=== PATIENT | female | born 1990 | race Caucasian/White ===

== ENCOUNTER 2016-10-18 16:30 | Emergency (ER) | payer OTHER ==
[~2016-10-18] VITALS: Ht 160 cm; Wt 99.8 kg
[2016-10-18] MEDS ORDERED: IBUPROFEN600 M1 PO (16:45)
[2016-10-18] MEDS ORDERED: FERROUS SULFAT325 M3 (16:46)
[2016-10-18] MEDS ORDERED: VITAMIN D250000 UNIT (16:47)
[2016-10-18] MEDS ORDERED: ESCITALOPRAM OXA5 MG (16:47)
[2016-10-18] MEDS ORDERED: TERBINAFINE HC250 MG PO (16:48)
[2016-10-18] MEDS ORDERED: IPRATROPIUM BRO30 M2 (16:49)
[2016-10-18] MEDS ORDERED: ALPRAZOLAM0.25 M1 (16:49)
[2016-10-18 16:50] LABS: ABSOLUTE BASOPHIL COUNT 0 /CUMM (0.0-0.2); ABSOLUTE EOSINOPHIL COUNT 0 /CUMM (0.0-0.7); ABSOLUTE GRANULOCYTE CT 7.4 /CUMM (1.4-6.5); ABSOLUTE LYMPH COUNT 0.6 /CUMM (1.2-3.4); ABSOLUTE MONOCYTE COUNT 0.1 /CUMM (0.10-0.60); BASOPHIL % 0 % (0.0-2.0); EOSINOPHIL % 0 % (0-5); GRANULOCYTE % 91.3 % (42.2-75.2); HEMATOCRIT 30.7 % (37-47); MEAN CORPUSCULAR HGB 18.3 PG (27.0-31.0); MEAN CORPUSCULAR HGB CONC 29.8 G/DL (33.0-37.0); MEAN CORPUSCULAR VOLUME 61.3 FL (81.0-99.0); MEAN PLATELET VOLUME 8.5 FL (7.4-10.4); PLATELET COUNT 305 /CUMM (130-400); RBC DISTRIBUTION WIDTH 20.3 % (11.5-14.5); RED BLOOD CELL CT 5.02 /CUMM (4.20-5.40); WHITE BLOOD CELL COUNT 8.1 /CUMM (4.8-10.8)
[2016-10-18] MEDS ORDERED: SKYLA1 EACH (16:50)
--- NOTE | 2016-10-18 17:10 | ED DYSPNEA/ASTHMA COMPLAINT ---
See Addendum History of Present Illness General Chief Complaint: Dyspnea (COPD, CHF, Other) Stated Complaint: BIBA RESP DISTRESS Source: patient, old records, EMS Exam Limitations: no limitations Vital Signs & Intake/Output Vital Signs & Intake/Output Vital Signs Date Time Temp Pulse Resp B/P Pulse O2 O2 Flow FiO2 Ox Delivery Rate 10/18 1849 90 Non 100% ReBreather 10/18 1840 129 24 97/39 10/18 1803 129 24 101/51 96 Venti Mask 100% 10/18 1743 129 24 90/43 96 Venti Mask 55% 10/18 1728 97 Non 100% ReBreather 10/18 1722 122 24 82/44 96 Non 100% ReBreather 10/18 1705 124 24 60/0 96 Non 100% ReBreather 10/18 1635 96.6 123 22 90/41 96 Non ReBreather Allergies Coded Allergies: NO KNOWN ALLERGIES (06/25/16) Reconcile Medications Alprazolam (Unknown Strength) TABLET (Unknown Dose) UNKNOWN (Reported) Ergocalciferol (Vitamin D2) (Vitamin D2) (Unknown Strength) CAPSULE (Unknown Dose) UNKNOWN (Reported) Escitalopram Oxalate (Unknown Strength) TABLET (Unknown Dose) UNKNOWN ( Reported) Ferrous Sulfate (Unknown Strength) TABLET (Unknown Dose) UNKNOWN (Reported) Ibuprofen 600 MG TABLET 2 TAB PO TID PAIN (Reported) Ipratropium [place] (Unknown Strength) SPRAY (Unknown Dose) UNKNOWN (Reported ) Levonorgestrel (Mary) 14 MCG/24 HOUR (3 YEARS) IUD CONTROL (Reported) Terbinafine HCl 250 MG TABLET 1 TAB PO DAILY ANTIFUNGAL (Reported) Triage Note: PT LUIS FROM HOME WITH PRIMARY COMPLAINT OF SOB X 3 DAY. SHE WAS FOUND TO BE HYPOXIC IN THE LOW 80'S AT RA BY [facility]ELMAN FOR SHE WAS PLACED ON NON REBRETAHER WITH O2 SAT INCREASE TO 90%. SHE APPEARS VERY PALE AND REPORTED + HX OF ANEMIA. ALSO REPORTED PRODUCTIVE COUGH X 3 DAYS NON FEBRILE. Triage Nurses Notes Reviewed? yes Onset: 3 days Duration: day(s):, constant, continues in ED Timing: recent history Severity: severe Activities at Onset: none Prior Episodes/Possible Cause: illness exposure Modifying Factors: Improves With: rest. Worsens With: movement. Associated Symptoms: anxiety, cough, chest pain, lightheadedness, weakness LMP (ages 10-50): unknown : No Patient currently breastfeeds: No HPI: 3 days prior to admission patient complains of nausea vomiting decreased appetite chills and nonproductive cough. She also complains of shortness of breath with substernal chest pain with cough deep breath and extreme weakness. The patient disclosed to nursing that there were recent deaths of her mom and sister in an MVA raising the possibility of suicide attempt. Past History Travel History Traveled to [place] past 21 day No Medical History Any Pertinent Medical History? 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 No Review of Systems Review of Systems Constitutional: Reports: see HPI, chills, weakness. EENTM: Reports: no symptoms. Respiratory: Reports: see HPI, cough, short of breath, wheezing. Cardiovascular: Reports: see HPI, chest pain. GI: Reports: see HPI, nausea, vomiting. Genitourinary: Reports: no symptoms. Musculoskeletal: Reports: no symptoms. Skin: Reports: no symptoms. Neurological/Psychological: Reports: no symptoms. Hematologic/Endocrine: Reports: no symptoms. Immunologic/Allergic: Reports: no symptoms. All Other Systems: Reviewed and Negative Physical Exam Physical Exam General Appearance: well developed/nourished, alert, awake, anxious, severe distress, obese Head: atraumatic, normal appearance Eyes: Bilateral: PERRL, EOMI, pale conjunctivae. Ears, Nose, Throat: normal pharynx, normal ENT inspection, dry mucous membranes Neck: normal inspection, supple, full range of motion, no midline tenderness Respiratory: chest non-tender, decreased breath sounds, accessory muscle use, rales, respiratory distress (severe) Cardiovascular: regular rate/rhythm, normal peripheral pulses, tachycardia, norml femoral pulses equa Peripheral Pulses: 4+ carotid (R), 4+ carotid (L) Gastrointestinal: normal bowel sounds, soft, non-tender, no organomegaly Extremities: normal inspection, normal capillary refill, normal range of motion, no edema Neurologic/Psych: awake, alert, oriented x 3, 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 Yes ASA ordered for poss ACS? Yes-ordered Severe Sepsis Present: Yes BC x2: Yes Lactic Acid x2: Yes IV ABX Broad Spectrum: Yes NS/LR Started: Yes Septic Shock Present: Yes BC x2: Yes Lactic Acid: Yes IV ABX Broad Spectrum: Yes Focused Exam Completed: Yes NS/LR 30ml/kg w/in 3hrs: Yes IV Vasopressors started: No Comment: BP with good response, no pressors started. Progress Differential Diagnosis: asthma, bronchitis, pulmonary embolism, pneumonia Plan of Care: Orders Procedure Date/time Status BLOOD CULTURE 10/18 184 Active Patient Data 10/18 183 Active Hemoccult 10/[address] ABD & PELVIS W/O IV CONTRAS 10/18 1744 Active Admit to inpatient 10/18 1742 Active URINE DRUGS OF ABUSE 10/18 1730 Complete URINALYSIS 10/18 1730 Complete Add-on Test (ER Only) 10/18 1719 Active Add-on Test (ER Only) 10/18 1658 Active RAPID VIRAL INFLUENZA A 10/18 1658 Active ACETOMINOPHEN 10/18 1640 Complete TROPONIN LEVEL 10/18 1640 Complete SALICYLATE 10/18 1640 Complete MAGNESIUM 10/18 1640 Complete LACTIC ACID 10/18 1640 Complete HUMAN BETA HCG SCREEN 10/18 1640 Complete D-DIMER 10/18 1640 Complete TYPE & SCREEN (NOT X-MATCH) 10/18 1640 Complete COMPREHENSIVE METABOLIC PANEL 10/18 1638 Complete CBC WITHOUT DIFFERENTIAL 10/18 1638 Complete EKG 10/18 1637 Active Laboratory Tests 10/18/16 1738: Urine Opiates Screen > 4000.00 H, Methadone Screen 48, Barbiturate Screen < 60, Ur Phencyclidine Scrn 6.00, Amphetamines Screen < 100, U Benzodiazepines Scrn < 85, Urine Cocaine Screen < 50, Urine Cannabis Screen < 5.00 10/18/16 1734: Urine Color YEL, Urine Clarity CLDY H, Urine pH 5.0, Ur Specific [place] 1.020, Urine Protein 30 H, Urine Ketones TRACE H, Urine Nitrite NEG, Urine Bilirubin NEG@ICTO, Urine Urobilinogen 0.2, Ur Leukocyte Esterase MOD H, Ur Microscopic SEDIMENT EXAMINED, Urine RBC 1-3, Urine WBC 50-75 H, Ur Epithelial Cells FEW, Urine Bacteria PACKD H, Urine Hemoglobin TRACE-INTACT, Urine Glucose NEG 10/18/16 1730: Magnesium Cancelled, Salicylates Cancelled, Acetaminophen Cancelled 10/18/16 1640: Anion Gap 26 H, Estimated GFR 25 L, BUN/Creatinine Ratio 6.7 L, Glucose 87, Lactic Acid 11.5 H, Calcium 8.2 L, Magnesium 1.2 L, Total Bilirubin 0.8, AST 23, ALT 26, Alkaline Phosphatase 62, Troponin I 0.15 *H, Total Protein 6.0 L, Albumin 3.2 L, Globulin 2.8, Albumin/Globulin Ratio 1.1, Total Beta HCG NEGATIVE, D-Dimer 650 H, CBC w Diff MAN DIFF ORDERED, RBC 5.02, MCV 61.3 L, MCH 18.3 L, RDW 20.3 H, MPV 8.5, Gran % 91.3 H, Lymphocytes % 7.0 L, Monocytes % 1.7, Eosinophils % 0, Basophils % 0 L, Absolute Granulocytes 7.4 H , Segmented Neutrophils 41 L, Band Neutrophils 45 H, Absolute Lymphocytes 0.6 L, Lymphocytes 8 L, Monocytes 3, Absolute Monocytes 0.1 L, Absolute Eosinophils 0, Absolute Basophils 0, Metamyelocytes 3 H, Platelet Estimate ADEQUATE, Polychromasia 1+, Hypochromic-Microcytic 1+, Poikilocytosis 1+, Anisocytosis 1+, Microcytic Cells 2+, Ovalocytes FEW, PUBS MCHC 29.8 L, Salicylates < 1.0, Acetaminophen < 10.0 L Microbiology 10/18 183 BLOOD: Blood Culture - RECD 10/18 183 BLOOD: Blood Culture - RECD 10/18 1658 NASOPHARYN: Influenza Virus A & B Rapid Smear - ORD Diagnostic Imaging: Viewed by Me: Radiology Read, CT Scan. Discussed w/RAD: Radiology Read, CT Scan. Radiology Impression: 1. Right greater than left lung consolidation is suspicious for pneumonia. Right pleural effusion is not excluded. Initial ED EKG: normal axis, normal intervals, normal p-waves, normal QRS complex, rhythm, rate (sinus tachycardia) Rhythm Strip: sinus tachycardia Departure Departure Disposition: STILL A PATIENT Condition: Guarded Clinical Impression Primary Impression: Pneumonia Qualifiers: Pneumonia type: due to unspecified organism Laterality: bilateral Lung location: lower lobe of lung Qualified Code: J18.9 - Pneumonia, unspecified organism Secondary Impressions: Acute renal failure Qualifiers: Acute renal failure type: unspecified Qualified Code: N17.9 - Acute kidney failure, unspecified Elevated troponin Hypokalemia Hypomagnesemia Lactic acidosis Opiate abuse, continuous UTI (urinary tract infection) Qualifiers: Urinary tract infection type: site unspecified Hematuria presence: without hematuria Qualified Code: N39.0 - Urinary tract infection, site not specified Referrals: AARON BATRES MD (PCP/Family) Departure Forms: Customer Survey General Discharge Information Admission Note Spoke With: KAE BARNETT MD Documentation of Exam: Documentation of any treatments & extenuating circumstances including Concerns Regarding Discharge (functional status, medication knowledge or non-compliance, living conditions, etc.) that warrant an admission rather than observation: Supplemental oxygen cardiac monitoring suicide precautions follow cultures serial lab exams IV antibiotics IV hydration medication adjustment continuing care discharge planning Critical Care Note Critical Care Note Critical Care Time: 30-74 min (50) care discharge planning Critical Care Note Critical Care Note Critical Care Time: 30-74 min (50)
--- NOTE | 2016-10-18 17:55 | RADIOLOGY REPORT ---
EXAMINATION: XR CHEST PORTABLE CLINICAL INFORMATION: Cough. Shortness of breath. COMPARISON: None. TECHNIQUE: Portable AP view of the chest was obtained. Motion artifact mildly limits exam. FINDINGS: Asymmetrically diminished right lung aeration. There is right mid to lower lung consolidation. Patchy opacification in the left lower lung also demonstrated. No pneumothorax. I cannot exclude right-sided pleural effusion. No mediastinal widening. No acute osseous abnormalities. IMPRESSION: 1. Right greater than left lung consolidation is suspicious for pneumonia. Right pleural effusion is not excluded. 2. Recommend follow-up chest radiography upon resolution of symptoms or completion of therapy to ensure clearance.
[2016-10-18 20:45] VITALS: BP 105/51
--- NOTE | 2016-10-18 22:07 | RADIOLOGY REPORT ---
EXAMINATION: XR CHEST PORTABLE CLINICAL INFORMATION: Post intubation. COMPARISON: Chest radiography earlier today. TECHNIQUE: Portable AP view of the chest was obtained. FINDINGS: The endotracheal tube terminates 5.4 cm above the mahesh. Right greater than left lung consolidation has worsened compared to earlier radiography. I cannot exclude pleural effusions. No pneumothorax. Mediastinal contours are stable. No acute osseous abnormalities. IMPRESSION: 1. ET tube terminates 5.4 cm above the mahesh. 2. Worsening bilateral consolidation, right greater than left. Diagnostic considerations include pneumonia and ARDS. Findings discussed with Dr. Rodríguez at 9:55 PM on 10/18/2016.
== END 2016-10-19 00:14 | disposition short-term general hospital (02) ==
LOC: ERH 16:30
PROVIDERS: Emergency Medicine
DX: J18.9 Pneumonia, unspecified organism (principal); N17.9 Acute kidney failure, unspecified; E87.6 Hypokalemia; E87.2 Acidosis; F11.10 Opioid abuse, uncomplicated; N39.0 Urinary tract infection, site not specified; R07.89 Other chest pain
CPT/HCPCS: 1263; 1288; 1342; 87184; 80307; 81001; 87040; 87804; 87804-59; 93005; 93010; 96361; 96374; 96375; 96376; 99291; G0480; J0131; J0456; J0696; J0713; J1885; J2405; J2930; J3370; J7040